=== PATIENT | female | born 1940 ===

== ENCOUNTER 2017-08-24 17:34 | Emergency (ER) | payer MEDICARE, MEDICAID ==
[2017-08-24 17:54] VITALS: BMI 23.6
[2017-08-24 18:20] VITALS: RESP 18; O2SAT 98
--- NOTE | 2017-08-24 18:53 | ED PDOC ---
Arrival/HPI - General Chief Complaint: Chest Pain Time Seen by Provider: 08/24/17 17:54 Historian: Patient - History of Present Illness Narrative History of Present Illness (Text): 08/24/17 18:50 Patient is a 77 yo female with past medical history of aortic valve replacement presents to the Emergency Department after experiencing sensation of upper abdominal "fullness" at 11 am while just sitting, then developed left sided chest discomfort intermittently for the past several hours. Symptoms not worse with exertion or movements. Pain in chest "comes and goes". No associated nausea or dizziness. No association with oral intake. Denies abdominal pain. Denies urinary symptoms. Denies leg pain or swelling. Time/Duration: Prior to Arrival Symptom Onset: Sudden Past Medical History - Cardiac Hx Cardiac Disorders: Yes Other/Comment: Valve replacement 2005. Heart valve prosthesis - Pulmonary Hx Respiratory Disorders: Yes Hx Asthma: Yes - Neurological Hx Neurological Disorder: Yes HX Cerebrovascular Accident: Yes - HEENT Hx HEENT Disorder: No - Renal Hx Renal Disorder: No - Endocrine/Metabolic Hx Endocrine Disorders: No - Hematological/Oncological Hx Blood Disorders: No - Integumentary Hx Dermatological Disorder: No - Musculoskeletal/Rheumatological Hx Musculoskeletal Disorders: No - Gastrointestinal Hx Gastrointestinal Disorders: No - Genitourinary/Gynecological Hx Genitourinary Disorders: No - Psychiatric Hx Psychophysiologic Disorder: No Hx Substance Use: No - Surgical History Hx Hysterectomy: Yes Hx Open Heart Surgery: Yes - Anesthesia Hx Anesthesia: Yes Hx Anesthesia Reactions: No Hx Malignant Hyperthermia: No Family/Social History Family/Social History: CAD/MA Smoking Status: Never Smoked Hx Alcohol Use: No Hx Substance Use: No Allergies/Home Meds Allergies/Adverse Reactions: Allergies No Known Allergies Allergy (Verified 08/24/17 17:53) Home Medications: Home Meds Medication Instructions Recorded Confirmed Aspirin [Aspirin EC] 325 mg PO DAILY 08/24/17 08/24/17 Bisoprolol [Zebeta] 5 mg PO DAILY 08/24/17 08/24/17 Risedronate Sodium [Atelvia] 35 mg PO QWK 08/24/17 08/24/17 Rosuvastatin Calcium [Crestor] 20 mg PO DAILY 08/24/17 08/24/17 Review of Systems - Review of Systems Constitutional: Fatigue. absent: Fevers Eyes: absent: Vision Changes ENT: absent: Hearing Changes Respiratory: absent: SOB, Cough Cardiovascular: Chest Pain, RABAGO. absent: Palpitations, Edema, Calf Pain Gastrointestinal: absent: Abdominal Pain, Diarrhea, Appetite Changes Genitourinary Female: absent: Dysuria Musculoskeletal: absent: Back Pain, Neck Pain Skin: absent: Rash Neurological: absent: Headache, Dizziness, Focal Weakness Endocrine: absent: Polyuria Hemo/Lymphatic: absent: Easy Bleeding Physical Exam Vital Signs Reviewed: Yes Vital Signs Pulse Resp BP Pulse Ox 08/24/17 17:54 60 18 113/66 98 Temperature: Afebrile Appearance: Positive for: Well-Appearing, Non-Toxic Pain Distress: Mild Mental Status: Positive for: Alert and Oriented X 3 - Systems Exam Head: Present: Atraumatic Extroacular Muscles: Present: EOMI Mouth: Present: Moist Mucous Membranes Pharnyx: No: ERYTHEMA Nose (Internal): Present: Normal Inspection Neck: Present: Normal Range of Motion. No: Meningeal Signs, MIDLINE TENDERNESS Respiratory/Chest: Present: Clear to Auscultation, Tender to Palpation. No: Respiratory Distress Cardiovascular: Present: Regular Rate and Rhythm, Murmurs, Other (systolic murmur) Abdomen: No: Tenderness, Distention, Peritoneal Signs Rectal: No: Gross Blood Breast/Axillary: No: Erythema Back: No: CVA Tenderness Upper Extremity: No: Cyanosis, Edema Lower Extremity: No: Edema, CALF TENDERNESS Neurological: Present: Motor Func Grossly Intact, Normal Sensory Function Skin: Present: Warm Psychiatric: Present: Alert Medical Decision Making ED Course and Treatment: 08/24/17 18:54 Patient presents with daughter who supplements history. Patient's pain is not exertion. She is not hypoxic. BP stable. No abdominal pain on palpation. No rash noted. EKG unremarkable for ischemia. Patient's crayon sorting machine feeder in [place] notified by family. Reportedly patient had cardiac catheterization in April of 2017 which was unremarkable. Will monitor patient, check cxr, labs, reassess symptoms. Currently pain free and comfortable. 08/24/17 21:33 Case d/w Dr. Valentine, patient's crayon sorting machine feeder. EKG and labs reviewed. Pain is persistent but mild, somewhat palpable on re-exam. BP stable. CT angio of chest ordered, patients daughter reports prior hx of possible thoracic aortic aneursym. 08/24/17 23:12 Pain resolved with Pepcid. CT findings reviewed with patient and daughter. She is aware of aneurysm, given stated size and current lack of symptoms have recommended follow-up. Other findings on ct reviewed. She has no abdominal pain or colicky pain on re-eval. Lungs are clear and no leg edema or respiratory distress noted. Labs and imaging studies reviewed with patient and family, limitations reviewed , stressed need for follow-up with her crayon sorting machine feeder. Addendum created by Jimbo Mcleod MD on 08/24/2017 11:02 PM Eastern Time ([place] & [place]) Findings are discussed with Gera Stratton , 08/24/2017 11:01 PM EST. The findings were acknowledged and understood. Initial Report created on 08/24/2017 10:56 PM Eastern Time ([place] & [place]) CT Chest With Intravenous Contrast IMPRESSION: 1. There is aneurysmal dilatation of the ascending aorta measuring 4.4 cm in diameter. 2. The main pulmonary trunk, right/left main pulmonary arteries, and the proximal lobar branches demonstrate no definite intraluminal filling defect to suggest pulmonary embolism. Artifact limits evaluation of the peripheral pulmonary arteries for pulmonary embolism within both lower lobes. 3. There is cardiomegaly. 4. Patchy nonspecific groundglass density and increased interstitial markings are visualized within the lungs, most significant within the lower lobes. Interstitial edema and atypical infection are within the differential. 5. There is slight anterior wedging of the T8 vertebral body, consistent with a compression fracture. The acuity of this finding is indeterminate. Clinical correlation is recommended. 6. Right apical parenchymal scarring is visualized. Left basilar atelectatic change is visualized. CT Abdomen and Pelvis With Intravenous Contrast IMPRESSION: 1. There is significant enhancement of the hepatic veins, suggestive of hepatic congestion. There is hypodense fatty infiltration of the liver. 2. Cholelithiasis. The common bile duct measures 7 mm in diameter, which is at the upper limits of normal. 3. There is mild dilatation of the pancreatic duct. No acute peripancreatic stranding is visualized. Correlation with pancreatic enzymes is recommended. 4. There is wall thickening of the stomach, suggestive of incomplete distention or gastritis. 5. The bladder is mildly distended. 6. Right renal cyst. 7. Additional CT findings described above. Dictated and Authenticated by: Jimbo Mcleod MD 08/24/2017 10:56 PM Eastern Time ([place] & [place]) - Lab Interpretations Lab Results: 08/24/17 18:30 08/24/17 18:30 Lab Results 08/24/17 20:23: Urine Color Yellow, Urine Appearance Clear, Urine pH 6.5, Ur Specific [place] 1.010, Urine Protein Negative, Urine Glucose (UA) Negative, Urine Ketones Negative, Urine Blood Negative, Urine Nitrate Negative, Urine Bilirubin Negative, Urine Urobilinogen 0.2, Ur Leukocyte Esterase Small H, Urine RBC Negative, Urine WBC 1 - 3, Ur Epithelial Cells 1 - 3, Urine Bacteria Few 08/24/17 18:30: Sodium 134, Potassium 3.5 L, Chloride 95 L, Carbon Dioxide 26, Anion Gap 17, BUN 12, Creatinine 0.8, Est GFR ( Amer) > 60, Est GFR (Non- Af Amer) > 60, Random Glucose 99, Calcium 8.9, Total Bilirubin 0.6, AST 36, ALT 33, Alkaline Phosphatase 47, Lactate Dehydrogenase 534, Total Creatine Kinase 58 , Troponin I < 0.01, Total Protein 7.6, Albumin 4.0, Globulin 3.6, Albumin/ Globulin Ratio 1.1, Lipase 166 08/24/17 18:30: PT 11.9, INR 1.04, APTT 30.1 08/24/17 18:30: Influenza Typ A,B (EIA) Negative for flu a/b 08/24/17 18:30: WBC 3.1 L, RBC 3.71, Hgb 11.6 L, Hct 34.4 L, MCV 92.7, MCH 31.3 , MCHC 33.7, RDW 12.8, Plt Count 142, MPV 9.7, Gran % 54.5, Lymph % (Auto) 36.9 H, [place] % (Auto) 6.4 H, Eos % (Auto) 1.6, Baso % (Auto) 0.6, Gran # 1.70, Lymph # (Auto) 1.2, [place] # (Auto) 0.2, Eos # (Auto) 0.1, Baso # (Auto) 0.02 - RAD Interpretation Radiology Orders: 08/24/17 18:26 CHEST PORTABLE [RAD] Stat 08/24/17 20:48 ANGIOGRAPHY DISECTION PROTOCOL [CT] Stat - EKG Interpretation EKG Interpretation (Text): 08/24/17 18:53 sinus bradycardia rate of [address] elevations Interpreted by ED Physician: Yes Type: 12 lead EKG Comparison: No previous EKG avail. - Medication Orders Current Medication Orders: Discontinued Medications Famotidine (Pepcid) 20 mg IVP STAT STA Stop: 08/24/17 20:49 Last Admin: 08/24/17 20:55 Dose: 20 mg IVP Administration Document 08/24/17 20:55 JOL (Rec: 08/24/17 20:55 JOL [id number]) Charges for Administration # of IVP Administrations 1 Potassium Chloride (K-Dur 20 Meq Er Tab) 20 meq PO STAT STA Stop: 08/24/17 21:07 Disposition/Present on Arrival - Present on Arrival Any Indicators Present on Arrival: No History of DVT/PE: No History of Uncontrolled Diabetes: No Urinary Catheter: No History of Decub. Ulcer: No History Surgical Site Infection Following: None - Disposition Have Diagnosis and Disposition been Completed?: Yes Diagnosis: Chest pain, Gastritis Disposition: HOSPITALIZED Disposition Time: 23:00 Patient Plan: Discharge Patient Problems: Current Active Problems Problem Status Onset Chest pain Acute Gastritis Acute Discharge Instructions (ExitCare): Chest Pain (ED), Gastritis (ED) Additional Instructions: For any fever, any headache or chest pain or shortness of breath, any abdominal pain, any leg pain or swelling, any dizziness or lightheadedness, any persistent or worsening of symptoms, any symptoms with exertion, get rechecked. Follow-up with your crayon sorting machine feeder. Radiology report has been reviewed and is preliminary. Continue your prevacid as directed. Prescriptions: Famotidine [Pepcid] 20 mg PO DAILY #10 tab Referrals: Rowena Tijerina, [Primary Care Provider] - Follow up with primary Forms: [employer] ([place])
[2017-08-24 18:58] LABS: BASO # 0.02 K/mm3 (0.0-2.0); BASO % 0.6 % (0.0-3.0); EOS # 0.1 (0.0-0.7); EOS % 1.6 % (1.5-5.0); GRAN # 1.7 (1.4-6.5); GRAN % 54.5 % (50.0-68.0); HEMOGLOBIN 11.6 g/dL (12.0-16.0); LYMPH # 1.2 (1.2-3.4); LYMPH % 36.9 % (22.0-35.0); MEAN CELL VOLUME 92.7 fl (80.0-105.0); MEAN CORPUSCULAR HEMOGLOBIN 31.3 pg (25.0-35.0); MEAN CORPUSCULAR HGB CONC 33.7 g/dl (31.0-37.0); MEAN PLATELET VOLUME 9.7 fl (7.0-11.0); MONO # 0.2 (0.1-0.6); MONO % 6.4 % (1.0-6.0); RBC 3.71 10^6/uL (3.5-6.1); RED CELL DISTRIBUTION WIDTH 12.8 % (11.5-14.5); WHITE BLOOD COUNT 3.1 10^3/ul (4.5-11.0)
[2017-08-24 19:08] LABS: ALB/GLOB RATIO 1.1 (1.1-1.8); ALT/SGPT 33 U/L (7-56); AST/SGOT 36 U/L (14-36); BLOOD UREA NITROGEN 12 mg/dL (7-21); CALCIUM 8.9 mg/dL (8.4-10.5); GFR AFRICAN-AMERICAN > 60; GFR NON-AFRICAN AMERICAN > 60; LIPASE 166 U/L (23-300)
[2017-08-24 19:19] LABS: TROPONIN I < 0.01 ng/mL
[2017-08-24 19:21] LABS: INR 1.04 (0.93-1.08); PARTIAL THROMBOPLASTIN TIME 30.1 Seconds (25.1-36.5); PROTHROMBIN TIME 11.9 SECONDS (9.4-12.5)
[2017-08-24 20:32] LABS: PH,URINE 6.5 (4.7-8.0); URINE BILIRUBIN NEGATIVE (NEGATIVE); URINE BLOOD NEGATIVE (NEGATIVE); URINE GLUCOSE (UA) NEGATIVE (NEGATIVE); URINE LEUKOCYTE ESTERASE SMALL Leu/uL (NEGATIVE); URINE NITRATE NEGATIVE (NEGATIVE); URINE PROTEIN NEGATIVE mg/dL (<30 mg/dL); URINE UROBILINOGEN 0.2 E.U./dL (<1 E.U./dL)
[2017-08-24 20:55] LABS: URINE APPEARANCE CLEAR (CLEAR); URINE COLOR YELLOW (YELLOW)
[2017-08-24 20:56] LABS: URINE BACTERIA FEW (NEG); URINE RBC NEGATIVE /hpf (0-2)
[2017-08-24] MEDS ORDERED: Potassium Chloride 20 mEq ER Tab PO STA (21:06)
--- NOTE | 2017-08-24 22:56 | CT ---
EXAM: CT Chest With Intravenous Contrast CLINICAL HISTORY: The patient age is 77 years old and is female; Pain; Other: Back pain; Chest pain; Radiating; Prior surgery; Surgery date: 6+ months; Surgery type: Hyst. ; Additional info: Chest pain radiating to back Facility exam id and description: Ct angiodisec angiography disection protocol TECHNIQUE: Axial computed tomography images of the chest with intravenous contrast during the arterial phase of enhancement. All CT scans at this facility use one or more dose reduction techniques, viz.: automated exposure control; ma/kV adjustment per patient size (including targeted exams where dose is matched to indication; i.e. head); or iterative reconstruction technique. Coronal and sagittal reformatted images were created and reviewed. CONTRAST: 147 mL of omnipaque 350 administered intravenously. COMPARISON: No relevant prior studies available. FINDINGS: Pulmonary arteries: The main pulmonary trunk, right/left main pulmonary arteries, and the proximal lobar branches demonstrate no definite intraluminal filling defect to suggest pulmonary embolism. Artifact limits evaluation of the peripheral pulmonary arteries within both lower lobes. Aorta: There is aneurysmal dilatation of the ascending aorta measuring 4.4 cm in diameter. Mild atherosclerotic changes are visualized of the thoracic aorta. Lungs: Patchy nonspecific groundglass density and increased interstitial markings are visualized within the lungs, most significant within the lower lobes. Interstitial edema and atypical infection are within the differential. No lung mass is visualized. Right apical parenchymal scarring is visualized. Left basilar atelectatic change is visualized. Pleural space: No significant effusion. No pneumothorax. Heart: There is cardiomegaly. Bones/joints: There is slight anterior wedging of the T8 vertebral body, consistent with a compression fracture. The acuity of this finding is indeterminate. Sternotomy wires are visualized. Lymph nodes: No enlarged lymph nodes. IMPRESSION: 1. There is aneurysmal dilatation of the ascending aorta measuring 4.4 cm in diameter. 2. The main pulmonary trunk, right/left main pulmonary arteries, and the proximal lobar branches demonstrate no definite intraluminal filling defect to suggest pulmonary embolism. Artifact limits evaluation of the peripheral pulmonary arteries for pulmonary embolism within both lower lobes. 3. There is cardiomegaly. 4. Patchy nonspecific groundglass density and increased interstitial markings are visualized within the lungs, most significant within the lower lobes. Interstitial edema and atypical infection are within the differential. 5. There is slight anterior wedging of the T8 vertebral body, consistent with a compression fracture. The acuity of this finding is indeterminate. Clinical correlation is recommended. 6. Right apical parenchymal scarring is visualized. Left basilar atelectatic change is visualized. EXAM: CT Abdomen and Pelvis With Intravenous Contrast EXAM DATE/TIME: 08/24/2017 8:48 PM CLINICAL HISTORY: The patient age is 77 years old and is female; Pain; Other: Back pain; Chest pain; Radiating; Prior surgery; Surgery date: 6+ months; Surgery type: Hyst. ; Additional info: Chest pain radiating to back Facility exam id and description: Ct angiodisec angiography disection protocol TECHNIQUE: Axial computed tomography images of the abdomen and pelvis with intravenous contrast. All CT scans at this facility use one or more dose reduction techniques, viz.: automated exposure control; ma/kV adjustment per patient size (including targeted exams where dose is matched to indication; i.e. head); or iterative reconstruction technique. Coronal and sagittal reformatted images were created and reviewed. CONTRAST: 147 mL of omnipaque 350 administered intravenously. COMPARISON: No relevant prior studies available. FINDINGS: Lower thorax: There is a small hiatal hernia. ABDOMEN: Liver: There is significant enhancement of the hepatic veins, suggestive of hepatic congestion. There is hypodense fatty infiltration of the liver. Gallbladder and bile ducts: A few small gallstones are visualized. The common bile duct measures 7 mm in diameter, which is at the upper limits of normal. Pancreas: There is mild dilatation of the pancreatic duct measuring 4 mm in diameter. An accessory pancreatic duct is visualized. No acute peripancreatic stranding is visualized. Spleen: No splenomegaly. Adrenals: There is mild nodular thickening of the left adrenal gland, which is nonspecific. Kidneys and ureters: A hypodense right renal cyst is visualized measuring 3.3 cm in diameter at the lower pole. There is no hydronephrosis bilaterally. Stomach and bowel: There is wall thickening of the stomach, suggestive of incomplete distention or gastritis. Appendix: No findings to suggest acute appendicitis. PELVIS: Bladder: The bladder is mildly distended. Reproductive: The uterus is absent. ABDOMEN and PELVIS: Intraperitoneal space: No free air. Bones/joints: Hypertrophic degenerative changes are noted within the spine. Vasculature: There is minimal atherosclerosis of the left renal artery, without significant stenosis. There is no significant stenosis or occlusion of the right renal artery. There is mild atherosclerosis of the common iliac arteries, without significant stenosis or occlusion. There is no significant stenosis or occlusion of the internal or external iliac arteries bilaterally. Mild atherosclerotic changes are visualized of the abdominal aorta. There is no aneurysm or dissection of the aorta. The celiac artery and mesenteric arteries are patent. Lymph nodes: No enlarged lymph nodes. IMPRESSION: 1. There is significant enhancement of the hepatic veins, suggestive of hepatic congestion. There is hypodense fatty infiltration of the liver. 2. Cholelithiasis. The common bile duct measures 7 mm in diameter, which is at the upper limits of normal. 3. There is mild dilatation of the pancreatic duct. No acute peripancreatic stranding is visualized. Correlation with pancreatic enzymes is recommended. 4. There is wall thickening of the stomach, suggestive of incomplete distention or gastritis. 5. The bladder is mildly distended. 6. Right renal cyst. 7. Additional CT findings described above.
[2017-08-25 04:20] VITALS: BP 112/65; PULSE 66
--- NOTE | 2017-08-25 08:46 | RAD ---
HISTORY: chest pain COMPARISON: 02/11/2014 FINDINGS: LUNGS: No active pulmonary disease. PLEURA: No significant pleural effusion identified, no pneumothorax apparent. CARDIOVASCULAR: Valvular prosthesis. Normal heart size. Sternotomy wires. OSSEOUS STRUCTURES: No significant abnormalities. VISUALIZED UPPER ABDOMEN: Normal. OTHER FINDINGS: None. IMPRESSION: No active disease.
--- NOTE | 2017-08-25 18:15 | CARD ---
APPROVED REPORT EKG Measurement Heart [id number] MD [id number] <Conclusion> Sinus bradycardia Otherwise normal ECG
== END 2017-08-24 23:15 | disposition home or self-care (01) ==
LOC: ED 17:34
DX: K29.70 Gastritis, unspecified, without bleeding (principal); R07.9 Chest pain, unspecified; Z86.73 Personal history of transient ischemic attack (TIA), and cerebral infarction without residual deficits
CPT/HCPCS: 71045; 71275; 74175; 80053; 81001; 82550; 83615; 83690; 84484; 85025; 85610; 85730; 87086; 87804; 93005; 96374; 99284; Q9967